=== PATIENT | female | born 1990 | race Caucasian/White ===

== ENCOUNTER 2017-02-23 16:08 | Emergency (ER) | payer OTHER ==
[~2017-02-23] VITALS: Wt 90.6 kg
[2017-02-23] MEDS ORDERED: SOD CHLORIDE 0.9% 1,000 ML IV STA (16:31)
[2017-02-23 16:51] LABS: ADD SCAN DIFF NO
[2017-02-23 16:52] LABS: BASOPHIL # 0.1 10^3/ul (0.0-0.1); BASOPHILS % 0.4 % (0.0-2.0); EOSINOPHILS # 0.1 10^3/ul (0.0-0.5); EOSINOPHILS % 0.4 % (0.0-7.0); HEMATOCRIT 35.5 % (37.0-47.0); HEMOGLOBIN 12.1 g/dl (12.0-16.0); LYMPHOCYTES # 4.9 10^3/ul (0.8-2.9); LYMPHOCYTES % 36.4 % (15.0-51.0); MEAN CORPUSCULAR HEMOGLOBIN 30.6 pg (29.0-33.0); MEAN CORPUSCULAR HGB CONC 34.1 g/dl (32.0-37.0); MEAN CORPUSCULAR VOLUME 89.6 fl (82.0-101.0); MEAN PLATELET VOLUME 10.5 fl (7.4-10.4); MONOCYTE # 0.9 10^3/ul (0.3-0.9); MONOCYTES % 6.5 % (0.0-11.0); NEUTROPHIL # 7.6 10^3/ul (1.6-7.5); PLATELET COUNT 392 10^3/UL (140-415); RED BLOOD COUNT 3.96 10^6/ul (4.20-5.40); RED CELL DISTRIBUTION WIDTH 13.2 % (11.5-14.5); WHITE BLOOD COUNT 13.5 10^3/ul (4.8-10.8)
[2017-02-23] MEDS ORDERED: ONDANSETRON 4 MG INJ IV STA (17:07)
[2017-02-23] MEDS ORDERED: ONDANSETRON 4 MG INJ ONE (17:08)
[2017-02-23 17:22] LABS: ALANINE AMINOTRANSFERASE 40 IU/L (13-69); ALBUMIN 4.6 g/dl (3.3-4.9); ALBUMIN/GLOBULIN RATIO 1.64; ALKALINE PHOSPHATASE 90 IU/L (42-121); ANION GAP 11 (8-16); ASPARTATE AMINO TRANSFERASE 22 IU/L (15-46); BILIRUBIN,INDIRECT 0.1 mg/dl (0-1.1); BILIRUBIN,TOTAL 0.1 mg/dl (0.2-1.3); BLOOD UREA NITROGEN 15 mg/dl (7-20); CARBON DIOXIDE 23 mmol/L (21-31); CHLORIDE 108 mmol/L (97-110); CREATININE 0.67 mg/dl (0.44-1.00); GLUCOSE 148 mg/dl (70-220); POTASSIUM 3.6 mmol/L (3.5-5.1); SODIUM 138 mmol/L (135-144); TOTAL PROTEIN 7.4 g/dl (6.1-8.1)
[2017-02-23 17:24] LABS: ACETAMINOPHEN < 10.0 ug/ml (10.0-30.0)
[2017-02-23 17:25] LABS: ETHANOL < 10.0 mg/dl; SALICYLATE < 1.0 mg/dl (5.0-30.0)
[2017-02-23 18:12] LABS: ADD UMIC YES; URINE BILIRUBIN (Dip) NEGATIVE (NEGATIVE); URINE BLOOD (Dip) NEGATIVE (NEGATIVE); URINE COLOR YELLOW (YELLOW); URINE GLUCOSE (Dip) NEGATIVE (NEGATIVE); URINE KETONES (Dip) NEGATIVE (NEGATIVE); URINE LEUKOCYTE ESTERASE (Dip) NEGATIVE (NEGATIVE); URINE NITRITE (Dip) NEGATIVE (NEGATIVE); URINE TOTAL PROTEIN (Dip) TRACE (NEGATIVE); URINE UROBILINOGEN (Dip) 0.2 E.U./dL (0.1-1.0)
[2017-02-23 18:20] LABS: URINE RBCS NONE SEEN /HPF (0)
[2017-02-23 18:41] LABS: BARBITURATES Negative (NEGATIVE); BENZODIAZEPINES Negative (NEGATIVE); CANNABINOIDS Positive (NEGATIVE); COCAINE Negative (NEGATIVE)
[2017-02-23 18:42] LABS: OPIATES Negative (NEGATIVE)
[2017-02-23 19:11] VITALS: BP 140/64; PULSE 119; RESP 22; TEMP 99.3
--- NOTE | 2017-02-23 19:43 | ERD ---
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 She ate edible marijuana today which she has never had before. She has not been speaking for the last 45 minutes per the boyfriend. She ate this marijuana at 3 :40 PM. He did as well but has done this in the past and is not feeling the same way she is. Upon review of old medical records this is the patient's first visit to the emergency department. ROS All systems reviewed and are negative except as per history of present illness. Allergies Allergies: Coded Allergies: No Known Drug Allergies (Verified Allergy, Unknown, 02/23/17) PMhx/Soc Medical and Surgical Hx: pt denies Medical Hx, pt denies Surgical Hx Hx Alcohol Use: Yes Hx Substance Use: Yes Hx Tobacco Use: Yes Smoking Status: Current every day smoker FmHx Unable to obtain Physical Exam Vitals Vital Signs Date Time Temp Pulse Resp B/P Pulse Ox O2 Delivery O2 Flow Rate FiO2 02/23/17 19:11 99.3 119 22 140/64 98 Room Air 02/23/17 18:31 99.3 123 22 137/61 98 Room Air 02/23/17 16:11 99.3 95 22 121/73 98 Physical Exam Const: Altered and vomiting Head: Atraumatic Eyes: Normal Conjunctiva ENT: Normal External Ears, Nose and Mouth. Neck: Full range of motion..~ No meningismus. Resp: Clear to auscultation bilaterally Cardio: Tachycardic rate without murmur Abd: Soft, non tender, non distended. Normal bowel sounds Skin: Pale skin Back: No midline or flank tenderness Ext: No cyanosis, or edema Neur: Awake but altered and vomiting Result Diagram: 02/23/17 1642 02/23/17 1642 Results 24 hrs Laboratory Tests Test 02/23/17 16:42 02/23/17 17:33 White Blood Count 13.510^3/ul Red Blood Count 3.9610^6/ul Hemoglobin 12.1g/dl Hematocrit 35.5% Mean Corpuscular Volume 89.6fl Mean Corpuscular Hemoglobin 30.6pg Mean Corpuscular Hemoglobin Concent 34.1g/dl Red Cell Distribution Width 13.2% Platelet Count 08510^3/UL Mean Platelet Volume 10.5fl Neutrophils % 56.0% Lymphocytes % 36.4% Monocytes % 6.5% Eosinophils % 0.4% Basophils % 0.4% Nucleated Red Blood Cells % 0.0/100WBC Neutrophils # 7.610^3/ul Lymphocytes # 4.910^3/ul Monocytes # 0.910^3/ul Eosinophils # 0.110^3/ul Basophils # 0.110^3/ul Nucleated Red Blood Cells # 0.010^3/ul Sodium Level 138mmol/L Potassium Level 3.6mmol/L Chloride Level 108mmol/L Carbon Dioxide Level 23mmol/L Anion Gap 11 Blood Urea Nitrogen 15mg/dl Creatinine 0.67mg/dl Glucose Level 148mg/dl Calcium Level 9.0mg/dl Total Bilirubin 0.1mg/dl Direct Bilirubin 0.00mg/dl Indirect Bilirubin 0.1mg/dl Aspartate Amino Transf (AST/SGOT) 22IU/L Alanine Aminotransferase (ALT/SGPT) 40IU/L Alkaline Phosphatase 90IU/L Total Protein 7.4g/dl Albumin 4.6g/dl Globulin 2.80g/dl Albumin/Globulin Ratio 1.64 Salicylates Level < 1.0mg/dl Acetaminophen Level < 10.0ug/ml Ethyl Alcohol Level < 10.0mg/dl Urine Color YELLOW Urine Clarity CLEAR Urine pH 5.5 Urine Specific Imperial >=1.030 Urine Ketones NEGATIVE Urine Nitrite NEGATIVE Urine Bilirubin NEGATIVE Urine Urobilinogen 0.2 E.U./dL Urine Leukocyte Esterase NEGATIVE Urine Microscopic RBC NONE SEEN/HPF Urine Microscopic WBC NONE SEEN/HPF Urine Hemoglobin NEGATIVE Urine Glucose NEGATIVE% Urine Total Protein TRACE Urine Opiates Screen Negative Urine Barbiturates Negative Urine Amphetamines Screen Negative Urine Benzodiazepines Screen Negative Urine Cocaine Screen Negative Urine Cannabinoids Positive Current Medications Medications (Trade) Dose Ordered Sig/Reuben Route PRN Reason Start Time Stop Time Status Last Admin Dose Admin Sodium Chloride (NS) 1,000 ml @ 1,000 mls/hr Q1H STAT IV 02/23/17 16:31 02/23/17 17:30 DC 02/23/17 17:10 Ondansetron HCl (Zofran Inj) 4 mg ONCE STAT IV 02/23/17 17:07 02/23/17 17:14 DC 02/23/17 17:18 Procedures/MDM EKG read by me: Rate/Rhythm: Sinus tachycardia at a rate of 128 Intervals: Normal Impression: Sinus tachycardia without ischemia Patient is a 26-year-old female presents with overdose on edible marijuana. The patient's laboratory studies are normal except for positive urine drug screen for marijuana. The patient was watched in the emergency department for over 1 hour and is now more awake. She was given Zofran and fluids and is no longer vomiting and feels better. She will be discharged as she is now awake and able to care for herself. She is going home with her boyfriend. At this point I doubt intracranial mass or abscess or bleeding. I believe outpatient management is appropriate. The patient should not use illicit drugs in the future. She can return for any worsening symptoms. Critical Care: Time: 35 minutes excluding all billable procedures. Treatments/Evaluations: Close monitoring and treatment of unstable vital signs, cardiorespiratory, and neurologic status, while maintaining tight balance of fluid, respiratory, and cardiac interventions. Departure Diagnosis: Primary Impression: Marijuana abuse Additional Impression: Altered level of consciousness Condition: Fair Patient Instructions: Altered Loc, Marijuana Abuse Additional Instructions: Call your primary care doctor TOMORROW for an appointment during the next 1-2 days.See the doctor sooner or return here if your condition worsens before your appointment time. KALE SWAIN MD Feb 23, 2017 19:43
== END 2017-02-23 19:11 | disposition home or self-care (01) ==
LOC: E/R 16:08
DX: F12.10 Cannabis abuse, uncomplicated (principal); R40.2232 Coma scale, best verbal response, inappropriate words, at arrival to emergency department; F17.210 Nicotine dependence, cigarettes, uncomplicated; R40.2132 Coma scale, eyes open, to sound, at arrival to emergency department; R40.2352 Coma scale, best motor response, localizes pain, at arrival to emergency department
CPT/HCPCS: 80053; 80306; 80307; 81001; 85025; 93005; J2405; J7030; 36415; 96374